=== PATIENT | male | born 1995 | race African-American/Black ===

== ENCOUNTER 2017-03-28 19:03 | Emergency (ER) | payer OTHER ==
[~2017-03-28] VITALS: Ht 195.6 cm; Wt 116.1 kg
--- NOTE | 2017-03-28 19:15 | NUR ---
TO BED 2 A 21 YO MALE PATIENT BB SELF W C/O "NECK ABCESS X4DAYS." NAD NOTED. VSS. AFEBRILE. COMFORT MEASURES RENDERED.
[2017-03-28] MEDS ORDERED: LIDOCAINE MPF 1%-EPI 1:200,000 30 ML VIAL IJ ONE (19:24)
[2017-03-28] MEDS ORDERED: CLINDAMYCIN 900 MG/6 ML VIAL ONE (19:26)
[2017-03-28] MEDS ORDERED: LIDOCAINE 1%-EPI 1:100,000 20 ML VIAL TP ONE (19:30)
[2017-03-28] MEDS ORDERED: CLINDAMYCIN 900 MG in IV D5W 100 ML IM ONE (19:30)
--- NOTE | 2017-03-28 19:36 | NUR ---
YUMIKO VILLALOBOS AT BEDSIDE FOR I & D.
--- NOTE | 2017-03-28 20:00 | NUR ---
MEDICATED PATIENT ORDERED BY YUMIKO VILLALOBOS.
--- NOTE | 2017-03-28 20:06 | NUR ---
Dressing intact and clean, no bleeding. Patient discharged to home in stable condition. Written and verbal after care instructions given. Patient verbalizes understanding of instruction. Patient is ambulatory with steady gait, no adr noted. No further complaints.
[2017-03-28 20:08] VITALS: BP 112/70
== END 2017-03-28 20:08 | disposition home or self-care (01) ==
LOC: ER 19:05
DX: L02.11 Cutaneous abscess of neck (principal)
CPT/HCPCS: 10060; 96372; 99283; A4606; A6402; J3490 ×3; J7060; Z7610; A6407

== ENCOUNTER 2017-03-29 15:39 | Emergency (ER) | payer OTHER ==
[~2017-03-29] VITALS: Ht 195.6 cm; Wt 113.4 kg
[2017-03-29 15:46] VITALS: BP 142/85
[2017-03-29] MEDS ORDERED: IBUPROFEN 600 MG TABLET PO ONE ×2 (16:06→16:30)
== END 2017-03-29 16:40 | disposition home or self-care (01) ==
LOC: ER 15:42
DX: Z48.01 Encounter for change or removal of surgical wound dressing (principal); L02.11 Cutaneous abscess of neck
CPT/HCPCS: 99283; A4606; A6402; A6407; Z7610